=== PATIENT | female | born 1990 | race Caucasian/White ===

== ENCOUNTER 2017-10-15 14:32 | Emergency (ER) | payer OTHER, MEDICAID ==
[~2017-10-15] VITALS: Ht 152.4 cm; Wt 58.1 kg
[2017-10-15 14:32] VITALS: BP_SYST 132
--- NOTE | 2017-10-15 14:32 | NUR ---
BROUGHT BACK TO BED VIA WHEELCHAIR, TRIAGED, REPORT GIVEN TO NEREYDA
--- NOTE | 2017-10-15 14:32 | NUR ---
Pt report received from RALEIGH Willett. Pt c/o Mid-Right sided abdominal pain x 1 day. Denies N/V/D. Mother at bedside.
--- NOTE | 2017-10-15 14:50 | NUR ---
Dr. Blank at bedside to assess pt.
[2017-10-15] MEDS ORDERED: NACL 0.9% 1,000 ML IV ONE (14:59)
[2017-10-15] MEDS ORDERED: MORPHINE 4 MG/ML INJ. SYRINGE IVP ONE (15:00)
[2017-10-15] MEDS ORDERED: ONDANSETRON HCL 4 MG/2 ML VIAL IVP ONE (15:00)
[2017-10-15 15:33] LABS: BASOPHILS # (AUTO) 0.1 K/uL (0.0-0.2); BASOPHILS % (AUTO) 0.9 % (0.0-2.0); EOSINOPHILS # (AUTO) 0.1 K/uL (0.0-0.4); EOSINOPHILS % (AUTO) 1.7 % (0.0-4.0); HEMATOCRIT 48.5 % (36-48); HEMOGLOBIN 15.8 g/dL (12.0-16.0); LYMPHOCYTES % (AUTO) 31.5 % (20.5-51.5); MEAN CORPUSCULAR HEMOGLOBIN 30 pg (27-31); MEAN CORPUSCULAR HGB CONC 33 % (32-36); MEAN CORPUSCULAR VOLUME 94 fL (79.0-98.0); MONOCYTES # (AUTO) 0.4 K/uL (0.0-1.0); MONOCYTES % (AUTO) 6.9 % (1.7-9.3); NEUTROPHILS # (AUTO) 3.8 K/uL (1.8-7.7); PLATELET COUNT (AUTO) 231 K/uL (130-430); RED BLOOD CELL COUNT(AUTO) 5.18 MIL/uL (4.2-6.2); RED CELL DISTRIBUTION WIDTH 12.5 % (9.0-15.0); WHITE BLOOD COUNT (AUTO) 6.4 K/uL (4.8-10.8)
--- NOTE | 2017-10-15 15:45 | NUR ---
Pt to CT via stretcher in stable condition.
--- NOTE | 2017-10-15 15:47 | NUR ---
Off unit for radiology via [facility]
[2017-10-15 15:48] LABS: CALCIUM 9.7 mg/dL (8.4-11.0); CREATININE 0.67 mg/dL (0.55-1.30); POTASSIUM 3.5 mmol/L (3.5-5.1)
[2017-10-15 15:55] LABS: ALBUMIN 4.6 g/dL (3.4-4.8); TOTAL BILIRUBIN 0.3 mg/dL (0.0-1.0)
--- NOTE | 2017-10-15 15:55 | NUR ---
Pt returns from CT.
[2017-10-15 16:30] LABS: BILIRUBIN,URINE NEGATIVE (NEGATIVE); CLARITY/URINE CLEAR (CLEAR); COLOR,URINE YELLOW (YELLOW); GLUCOSE,URINE NEGATIVE (NEGATIVE); KETONES,URINE NEGATIVE (NEGATIVE); LEUKOCYTE ESTERASE ,URINE NEGATIVE (NEGATIVE); NITRITE, URINE NEGATIVE (NEGATIVE); PROTEIN URINE NEGATIVE (NEGATIVE); UROBILINOGEN,URINE 0.2 (0.2-1.0)
[2017-10-15 16:50] LABS: BLOOD, URINE TRACE (NEGATIVE)
[2017-10-15 17:25] LABS: BACTERIA,URINE MODERATE /HPF (None Seen); RBC,URINE 0-3 /HPF (0-3); WBC,URINE 0-3 /HPF (0-3)
[2017-10-15 17:26] LABS: MUCUS,URINE None Seen /LPF (None Seen)
[2017-10-15 18:30] VITALS: BP_SYST 128
--- NOTE | 2017-10-15 18:30 | NUR ---
Mother of pt given written and verbal discharge instructions and verbalizes understanding. ER MD discussed with patient the results and treatment provided. Patient in stable condition. ID arm band removed. IV catheter removed intact and dressing applied, no active bleeding. Patient educated on pain management and to follow up with PMD. Pain Scale 0/10. Opportunity for questions provided and answered.
== END 2017-10-15 18:30 | disposition home or self-care (01) ==
LOC: SED 14:32
DX: R10.11 Right upper quadrant pain (principal); Z90.49 Acquired absence of other specified parts of digestive tract; Z88.2 Allergy status to sulfonamides; Z88.1 Allergy status to other antibiotic agents
CPT/HCPCS: 36415; 74176; 80053; 81000; 81025; 83690; 84703; 85025; 87086; 96361; 96374; 96375; 99285; J2270; J2405; J7030